=== PATIENT | male | born 1990 | race Caucasian/White ===

== ENCOUNTER 2018-07-18 12:36 | Day surgery (SDC) | payer OTHER ==
[~2018-07-18 12:36] MED LIST: MIDAZOLAM 1 MG/ML 2 ML INJ
[2018-07-18] MEDS ORDERED: DEXAMETHASONE 4 MG/ML 1 ML INJ ×2 (14:36→17:24)
[2018-07-18] MEDS ORDERED: ROPIVACAINE 0.5 % 30 ML VIAL (15:03)
[2018-07-18] MEDS ORDERED: POVIDONE IODINE 10% 28.4 GM OINT (15:04)
[2018-07-18] MEDS ORDERED: POLYMYXIN/BACITRACIN 1L IRRIG ×2 (15:04→15:50)
[2018-07-18] MEDS ORDERED: LIDOCAINE 2% (SDV) 5 ML INJ (15:05)
[2018-07-18] MEDS ORDERED: PROPOFOL 20 ML (15:05)
[2018-07-18] MEDS ORDERED: CEFAZOLIN 1 GM INJ (15:33)
[2018-07-18] MEDS: ROPIVACAINE 0.5 % 30 ML VIAL (16:15)
[2018-07-18] MEDS ORDERED: FENTAnyl 50 MCG/ML VIAL ×2 (16:26→17:59)
[2018-07-18] MEDS ORDERED: KETOROLAC 30 MG INJ (17:23)
[2018-07-18] MEDS ORDERED: ONDANSETRON 4 MG INJ (17:24)
[2018-07-18] MEDS ORDERED: ALBUTEROL 0.083% (NEB) 2.5 MG/3 ML AMP (17:41)
[2018-07-18] MEDS ORDERED: BACITRACIN/POLYMYXIN 28.35 GM OINT TOP (17:43)
[2018-07-18] MEDS ORDERED: FAMOTIDINE 20 MG INJ (18:02)
[2018-07-18] MEDS ORDERED: METOCLOPRAMIDE 10 MG INJ (18:02)
[2018-07-18] MEDS ORDERED: OXYCODONE/ACETAMINOPHEN (5/325) TAB PO (18:30)
[2018-07-18] MEDS ORDERED: HYDROmorphONE 1 MG/5 ML IV SYRINGE IV ×2 (18:30)
[2018-07-18] MEDS: ONDANSETRON 4 MG INJ IV (19:01)
[2018-07-18] MEDS: morphine 2 MG INJ IV (19:01)
[2018-07-18] MEDS: OXYCODONE/ACETAMINOPHEN (5/325) TAB PO (19:05)
== END 2018-07-18 19:55 | disposition home or self-care (01) ==
LOC: SDS 12:36
DX: S83.511A Sprain of anterior cruciate ligament of right knee, initial encounter (principal); S83.281A Other tear of lateral meniscus, current injury, right knee, initial encounter; X58.XXXA Exposure to other specified factors, initial encounter
CPT/HCPCS: 29881; 73562; 82306